=== PATIENT | male | born 1955 | race Caucasian/White ===

== ENCOUNTER 2022-05-25 09:20 | Inpatient (IN) ==
[2022-05-25 10:02] LABS: Hematocrit 20 % (42-52); Hemoglobin 6.3 g/dL (14.0-18.0); Mean Corpuscular HGB Conc 31 g/dL (31-36); Mean Corpuscular Hemoglobin 21 pg (27-31); Mean Corpuscular Volume 68 fL (80-94); Mean Platelet Volume 8.5 fL (7.4-10.4); Platelet Count 155 10^3/uL (150-450); Red Blood Count 2.95 10^6 /uL (4.18-5.48); Red Cell Distribution Width 21 % (10-15)
[2022-05-25 10:05] LABS: INR 1.55 (0.88-1.18)
[2022-05-25 10:19] LABS: High Sens Troponin Baseline 8 pg/mL (<20)
[2022-05-25 10:42] LABS: ALT 10 U/L (7-52); AST 10 U/L (13-39); Albumin 2.8 g/dL (3.2-5.2); Albumin/Globulin Ratio 1.2 (1-3); Alkaline Phosphatase 80 U/L (35-149); Anion Gap 15 mmol/L (2-11); Blood Urea Nitrogen 27 mg/dL (6-24); CO2 Carbon Dioxide 21 mmol/L (22-32); Calcium 7.8 mg/dL (8.6-10.3); Chloride 101 mmol/L (101-111); Creatinine, Serum 1.81 mg/dL (0.67-1.17); Globulin 2.4 g/dL (2-4); Glucose 175 mg/dL (70-100); Magnesium 1.7 mg/dL (1.9-2.7); Potassium 3.7 mmol/L (3.5-5.0); Sodium 137 mmol/L (135-145); Total Protein 5.2 g/dL (6.4-8.9); eGFR CKD-EPI 40.2 (>60)
[2022-05-25] MEDS ORDERED: Magnesium Sulfate IV 3 GM in NS 0.9% 100 ml BAG 100 ML IVPB ONE (11:00)
[2022-05-25 11:25] LABS: High Sensitivity Troponin 1 Hr 8 pg/mL (<20)
[2022-05-25 11:35] LABS: Microcytosis 3+; Toxic Granulation 1+
[2022-05-25 11:36] LABS: Anisocytosis 2+
[2022-05-25 11:38] LABS: ABS Lymphocytes 0.2 10^3/ul (1.0-4.8); ABS Monocytes 0.1 10^3/ul (0-0.8); ABS Neutrophils 0.6 10^3/ul (1.5-7.7); Eosinophil % 1.9 %; Lymphocyte % 17.5 %; Nucleated Red Blood Cells % 0.1
[2022-05-25] MEDS ORDERED: KCL 20 MEQ/100 ML IVPREMIX 20 MEQ/100 ML BAG IV ONE (13:00)
[2022-05-25] MEDS ORDERED: Magnesium Sulfate 2 gm BAG 2 GM/50 ML BAG IVPB ONE (13:00)
[2022-05-25] MEDS: Enoxaparin 40 MG/0.4 ML SYR SUBCUT SCH (15:21)
[2022-05-25] MEDS: Ondansetron 4 mg VIAL 2 MG/ML 2 ml VIAL IV PRN ×2 (15:23→20:41)
[2022-05-25 22:36] LABS: Total Iron Binding Capacity 234 mcg/dL (250-450); Transferrin 167 mg/dL (203-362)
[2022-05-25 22:39] LABS: % Iron Saturation 9 % (15-55); Iron < 20 ug/dL (50-212); Unsaturated Iron Binding 214 ug/dL
[2022-05-25 22:56] LABS: Ferritin 366.1 ng/mL (24-336)
[2022-05-26] MEDS ORDERED: Calcium Carb (TUMS) 500 mg CHEW TAB PO ONE ×2 (00:07→23:48)
[2022-05-26 00:41] LABS: Hematocrit 24 % (42-52); Hemoglobin 8.1 g/dL (14.0-18.0)
[2022-05-26 06:54] LABS: Hematocrit 25 % (42-52); Hemoglobin 8.2 g/dL (14.0-18.0); Mean Corpuscular HGB Conc 33 g/dL (31-36); Mean Corpuscular Hemoglobin 23 pg (27-31); Mean Corpuscular Volume 70 fL (80-94); Mean Platelet Volume 8.5 fL (7.4-10.4); Platelet Count 244 10^3/uL (150-450); Red Blood Count 3.53 10^6 /uL (4.18-5.48); Red Cell Distribution Width 22 % (10-15); White Blood Count 3.5 10^3/uL (3.5-10.8)
[2022-05-26 07:36] LABS: Calcium 7.7 mg/dL (8.6-10.3); Magnesium 2.6 mg/dL (1.9-2.7); Potassium 3.2 mmol/L (3.5-5.0)
[2022-05-26 07:41] LABS: Creatinine, Serum 1.73 mg/dL (0.67-1.17); Phosphorus 3.1 mg/dL (2.5-5.0); eGFR CKD-EPI 42.5 (>60)
[2022-05-26 08:40] LABS: ABS Eosinophils 0.1 10^3/ul (0-0.6); ABS Lymphocytes 0.6 10^3/ul (1.0-4.8); ABS Monocytes 0.3 10^3/ul (0-0.8); ABS Neutrophils 2.5 10^3/ul (1.5-7.7); Eosinophil % 3.4 %; Lymphocyte % 18.5 %
[2022-05-26 08:48] LABS: Macrocytosis 3+
[2022-05-26 08:49] LABS: Anisocytosis 2+
[2022-05-26] MEDS ORDERED: Lactated Ringers 1000 ml BAG 1,000 ML IV ONE (09:08)
[2022-05-26] MEDS ORDERED: NS 0.9% 1000 ml BAG 1,000 ML IV ONE (09:53)
[2022-05-26] MEDS: Potassium Chlor 20 meq TAB.ER PO ONE ×2 (09:58→13:01)
[2022-05-26] MEDS ORDERED: Potassium Chlor 20 meq TAB.ER PO ONE (10:00)
[2022-05-26] MEDS ORDERED: NS 0.9% 1000 ml BAG 1,000 ML IV SCH (10:00)
[2022-05-26] MEDS: Cholestyramine Resin 4 GM POWDER PO SCH ×2 (10:50→22:52)
[2022-05-26] MEDS ORDERED: Metoprolol Tartrate 5 mg VIAL 5 ml VIAL (1 mg/ml) IV PRN (11:55)
[2022-05-26] MEDS ORDERED: Potassium Chloride LIQUID 20 MEQ/15 ML LIQUID PO ONE (12:39)
[2022-05-26] MEDS ORDERED: KCL 20 MEQ/100 ML IVPREMIX 20 MEQ/100 ML BAG IV SCH (13:00)
[2022-05-26] MEDS ORDERED: Metoprolol Tartrate 5 mg VIAL 5 ml VIAL (1 mg/ml) IV ONE (13:17)
[2022-05-26 15:07] LABS: High Sensitivity Troponin 1 Hr 10 pg/mL (<20)
[2022-05-26] MEDS: Enoxaparin 40 MG/0.4 ML SYR SUBCUT SCH (15:12)
[2022-05-26] MEDS ORDERED: Digoxin IV 0.5 MG/2 ML AMP (0.25 MG/ML) IV SLOW PU ONE (15:47)
[2022-05-26 17:00] LABS: TSH Ultra Thyroid Stim Horm 1.35 mcIU/mL (0.34-5.60)
[2022-05-26] MEDS ORDERED: Acetaminophen IV 1 GM/100ML 1,000 MG/100 ML BAG IV ONE (17:22)
[2022-05-26] MEDS ORDERED: Al Hydrox/Mg Hydrox/Simet LIQ 30 ML UDC PO PRN (17:32)
[2022-05-26 18:46] LABS: Calcium 7.9 mg/dL (8.6-10.3); Creatinine, Serum 1.31 mg/dL (0.67-1.17); Magnesium 2.3 mg/dL (1.9-2.7); Potassium 3.9 mmol/L (3.5-5.0); eGFR CKD-EPI 59.3 (>60)
[2022-05-26] MEDS: Ondansetron 4 mg VIAL 2 MG/ML 2 ml VIAL IV PRN (20:58)
[2022-05-26] MEDS: Lactated Ringers 1000 ml BAG 1,000 ML IV SCH (20:59)
[2022-05-26] MEDS: Scopolamine 1 mg/72hr PATCH TRANSDERM SCH (23:03)
[2022-05-27] MEDS ORDERED: Digoxin IV 0.5 MG/2 ML AMP (0.25 MG/ML) ONE (03:12)
[2022-05-27] MEDS ORDERED: Digoxin IV 0.5 MG/2 ML AMP (0.25 MG/ML) IV SLOW PU ONE (04:00)
[2022-05-27 06:32] LABS: INR 1.33 (0.88-1.18)
[2022-05-27 06:36] LABS: Hematocrit 31 % (42-52); Hemoglobin 10.1 g/dL (14.0-18.0); Mean Corpuscular HGB Conc 33 g/dL (31-36); Mean Corpuscular Hemoglobin 23 pg (27-31); Mean Corpuscular Volume 71 fL (80-94); Mean Platelet Volume 8.5 fL (7.4-10.4); Platelet Count 288 10^3/uL (150-450); Red Blood Count 4.35 10^6 /uL (4.18-5.48); Red Cell Distribution Width 22 % (10-15); White Blood Count 3.4 10^3/uL (3.5-10.8)
[2022-05-27] MEDS: Lactated Ringers 1000 ml BAG 1,000 ML IV SCH ×2 (06:41→18:31)
[2022-05-27 06:42] LABS: Albumin 2.5 g/dL (3.2-5.2); Calcium 7.8 mg/dL (8.6-10.3); Creatinine, Serum 1.53 mg/dL (0.67-1.17); Globulin 2.4 g/dL (2-4); Magnesium 2.3 mg/dL (1.9-2.7); Phosphorus 4.4 mg/dL (2.5-5.0); Potassium 4.2 mmol/L (3.5-5.0); Total Bilirubin 1.1 mg/dL (0.2-1.0); Total Protein 4.9 g/dL (6.4-8.9); eGFR CKD-EPI 49.2 (>60)
[2022-05-27 07:34] LABS: Anisocytosis 1+
[2022-05-27 07:35] LABS: ABS Lymphocytes 0.8 10^3/ul (1.0-4.8); ABS Neutrophils 2.2 10^3/ul (1.5-7.7); Microcytosis 1+
[2022-05-27] MEDS: Ondansetron 4 mg VIAL 2 MG/ML 2 ml VIAL IV PRN ×2 (08:16→11:06)
[2022-05-27] MEDS: Cholestyramine Resin 4 GM POWDER PO SCH (10:52)
[2022-05-27] MEDS ORDERED: Famotidine IV 10 MG/ML 2 ml VIAL (20 mg) IV SLOW PU SCH (12:00)
[2022-05-27] MEDS: Enoxaparin 40 MG/0.4 ML SYR SUBCUT SCH (13:25)
[2022-05-27] MEDS ORDERED: Piperacillin/Tazobac ADVAN 3.375 GM in NS 0.9% 100 ml BAG 100 ML IV ONE (13:51)
[2022-05-27] MEDS ORDERED: Zosyn per Pharmacy NOTE FOLLOW UP SCH (14:00)
[2022-05-27] MEDS ORDERED: Midazolam 5 mg/5 ml VIAL 1 mg/ml 5 ml VIAL (5 mg) ONE (14:51)
[2022-05-27] MEDS ORDERED: fentaNYL 100 mcg/2 ml 50 MCG/ML VIAL ONE (14:51)
[2022-05-27] MEDS: Pantoprazole VIAL 40 MG VIAL IV SCH (21:10)
[2022-05-27] MEDS: ZOSYN 3.375 GM Q8H per EXTENDED INFUSION IV SCH (21:58)
[2022-05-28] MEDS: Lactated Ringers 1000 ml BAG 1,000 ML IV SCH ×2 (04:47→16:14)
[2022-05-28] MEDS: ZOSYN 3.375 GM Q8H per EXTENDED INFUSION IV SCH ×3 (05:37→21:54)
[2022-05-28 06:42] LABS: Hematocrit 27 % (42-52); Hemoglobin 8.8 g/dL (14.0-18.0); Mean Corpuscular HGB Conc 33 g/dL (31-36); Mean Corpuscular Hemoglobin 24 pg (27-31); Mean Corpuscular Volume 71 fL (80-94); Mean Platelet Volume 8.1 fL (7.4-10.4); Platelet Count 236 10^3/uL (150-450); Red Blood Count 3.75 10^6 /uL (4.18-5.48); Red Cell Distribution Width 22 % (10-15); White Blood Count 4.5 10^3/uL (3.5-10.8)
[2022-05-28 06:58] LABS: Calcium 7.4 mg/dL (8.6-10.3); Creatinine, Serum 1.19 mg/dL (0.67-1.17); Potassium 3.4 mmol/L (3.5-5.0); eGFR CKD-EPI 66.5 (>60)
[2022-05-28 08:38] LABS: ABS Eosinophils 0.1 10^3/ul (0-0.6); ABS Lymphocytes 0.8 10^3/ul (1.0-4.8); ABS Monocytes 0.4 10^3/ul (0-0.8); ABS Neutrophils 3.2 10^3/ul (1.5-7.7); Eosinophil % 2.5 %; Lymphocyte % 17.6 %; Nucleated Red Blood Cells % 0.1
[2022-05-28] MEDS ORDERED: Pantoprazole VIAL 40 MG VIAL IV SCH (09:00)
[2022-05-28] MEDS: Pantoprazole VIAL 40 MG VIAL IV SCH ×2 (09:22→20:46)
[2022-05-28] MEDS ORDERED: Potassium Chlor 20 meq TAB.ER PO ONE (09:36)
[2022-05-28] MEDS: Enoxaparin 40 MG/0.4 ML SYR SUBCUT SCH (10:39)
[2022-05-28] MEDS: KCL 20 MEQ/100 ML IVPREMIX 20 MEQ/100 ML BAG IV SCH ×2 (10:39→13:20)
[2022-05-29] MEDS: Lactated Ringers 1000 ml BAG 1,000 ML IV SCH (03:03)
[2022-05-29] MEDS: ZOSYN 3.375 GM Q8H per EXTENDED INFUSION IV SCH ×2 (06:01→14:00)
[2022-05-29 07:17] LABS: Hematocrit 25 % (42-52); Hemoglobin 8.2 g/dL (14.0-18.0); Mean Corpuscular HGB Conc 33 g/dL (31-36); Mean Corpuscular Hemoglobin 23 pg (27-31); Mean Corpuscular Volume 71 fL (80-94); Mean Platelet Volume 7.4 fL (7.4-10.4); Platelet Count 218 10^3/uL (150-450); Red Blood Count 3.52 10^6 /uL (4.18-5.48); Red Cell Distribution Width 22 % (10-15); White Blood Count 5.4 10^3/uL (3.5-10.8)
[2022-05-29 07:57] LABS: Calcium 7.4 mg/dL (8.6-10.3); Creatinine, Serum 0.92 mg/dL (0.67-1.17); Magnesium 1.9 mg/dL (1.9-2.7); Potassium 3.5 mmol/L (3.5-5.0); eGFR CKD-EPI 90.6 (>60)
[2022-05-29] MEDS ORDERED: Potassium Chlor 20 meq TAB.ER PO ONE (09:52)
[2022-05-29] MEDS ORDERED: Magnesium Sulfate 2 gm BAG 2 GM/50 ML BAG IVPB ONE (09:52)
[2022-05-29] MEDS: Pantoprazole VIAL 40 MG VIAL IV SCH ×2 (11:28→20:43)
[2022-05-29] MEDS: Enoxaparin 40 MG/0.4 ML SYR SUBCUT SCH (11:29)
[2022-05-29] MEDS ORDERED: Prochlorperazine 5 mg/ml 2 ml VIAL (10 mg) IV PRN (11:33)
[2022-05-29 19:33] LABS: CMV DNA DETECT/QT, P Undetected IU/mL (Undetected)
[2022-05-29] MEDS ORDERED: Senna TAB 8.6 mg TAB PO SCH (21:00)
[2022-05-29] MEDS: Scopolamine 1 mg/72hr PATCH TRANSDERM SCH (23:10)
[2022-05-30 06:46] LABS: Calcium 7.4 mg/dL (8.6-10.3); Creatinine, Serum 0.86 mg/dL (0.67-1.17); Magnesium 2.1 mg/dL (1.9-2.7); Potassium 3.8 mmol/L (3.5-5.0); eGFR CKD-EPI 94.3 (>60)
[2022-05-30] MEDS ORDERED: Digoxin IV 0.5 MG/2 ML AMP (0.25 MG/ML) IV SLOW PU ONE (08:00)
[2022-05-30 08:20] LABS: Carcinoembryonic Antigen 221.3 ng/mL (0.1-5.0)
[2022-05-30] MEDS: Iron Sucrose 200 MG in NS 0.9% 100 ml IVPB SCH (08:54)
[2022-05-30] MEDS: Pantoprazole VIAL 40 MG VIAL IV SCH ×2 (08:55→20:34)
[2022-05-30] MEDS ORDERED: Iron Sucrose 20 MG/ML 5 ML VIAL IV PUSH SCH (09:00)
[2022-05-30] MEDS: Enoxaparin 40 MG/0.4 ML SYR SUBCUT SCH (09:03)
[2022-05-30] MEDS: Sucralfate 1 gm SUSP 1 GM/10 ML UDC PO SCH ×3 (11:31→20:34)
[2022-05-30 16:52] LABS: Calprotectin 101 mcg/g
[2022-05-31 07:12] LABS: Calcium 7.4 mg/dL (8.6-10.3); Creatinine, Serum 0.66 mg/dL (0.67-1.17); Potassium 3.3 mmol/L (3.5-5.0); eGFR CKD-EPI 102.2 (>60)
[2022-05-31] MEDS: Iron Sucrose 200 MG in NS 0.9% 100 ml IVPB SCH (08:18)
[2022-05-31] MEDS: Pantoprazole VIAL 40 MG VIAL IV SCH ×2 (08:18→20:10)
[2022-05-31] MEDS: Enoxaparin 40 MG/0.4 ML SYR SUBCUT SCH (08:19)
[2022-05-31] MEDS: Sucralfate 1 gm SUSP 1 GM/10 ML UDC PO SCH ×4 (09:11→20:09)
[2022-05-31] MEDS ORDERED: Potassium Chlor 20 meq TAB.ER PO ONE ×2 (09:24→12:00)
[2022-06-01] MEDS: Sucralfate 1 gm SUSP 1 GM/10 ML UDC PO SCH ×4 (07:44→19:54)
[2022-06-01] MEDS: Pantoprazole VIAL 40 MG VIAL IV SCH ×2 (08:02→19:55)
[2022-06-01] MEDS: Enoxaparin 40 MG/0.4 ML SYR SUBCUT SCH (08:02)
[2022-06-01] MEDS: Iron Sucrose 200 MG in NS 0.9% 100 ml IVPB SCH (08:03)
[2022-06-01 09:03] LABS: Hematocrit 28 % (42-52); Hemoglobin 8.8 g/dL (14.0-18.0); Mean Corpuscular HGB Conc 32 g/dL (31-36); Mean Corpuscular Hemoglobin 23 pg (27-31); Mean Corpuscular Volume 72 fL (80-94); Mean Platelet Volume 8.2 fL (7.4-10.4); Platelet Count 325 10^3/uL (150-450); Red Blood Count 3.82 10^6 /uL (4.18-5.48); Red Cell Distribution Width 22 % (10-15); White Blood Count 9.5 10^3/uL (3.5-10.8)
[2022-06-01 09:26] LABS: Calcium 7.2 mg/dL (8.6-10.3); Creatinine, Serum 0.6 mg/dL (0.67-1.17); Magnesium 1.7 mg/dL (1.9-2.7); Potassium 3.6 mmol/L (3.5-5.0); eGFR CKD-EPI 105.1 (>60)
[2022-06-01] MEDS ORDERED: Magnesium Sulfate 2 gm BAG 2 GM/50 ML BAG IVPB ONE (10:00)
[2022-06-01 11:00] LABS: Direct Bilirubin 0.1 mg/dL (0.03-0.18); Indirect Bilirubin 0.4 mg/dL (0.3-1.0); Total Bilirubin 0.5 mg/dL (0.2-1.0)
[2022-06-01] MEDS: Scopolamine 1 mg/72hr PATCH TRANSDERM SCH (23:28)
[2022-06-02 07:40] LABS: Hematocrit 29 % (42-52); Hemoglobin 9.5 g/dL (14.0-18.0); Mean Corpuscular HGB Conc 32 g/dL (31-36); Mean Corpuscular Hemoglobin 24 pg (27-31); Mean Corpuscular Volume 74 fL (80-94); Mean Platelet Volume 8.2 fL (7.4-10.4); Platelet Count 387 10^3/uL (150-450); Red Blood Count 3.96 10^6 /uL (4.18-5.48); Red Cell Distribution Width 23 % (10-15); White Blood Count 8.9 10^3/uL (3.5-10.8)
[2022-06-02 08:11] LABS: Calcium 7.4 mg/dL (8.6-10.3); Creatinine, Serum 0.66 mg/dL (0.67-1.17); Magnesium 1.8 mg/dL (1.9-2.7); Potassium 3.4 mmol/L (3.5-5.0); eGFR CKD-EPI 102.2 (>60)
[2022-06-02 09:26] LABS: Microcytosis 2+
[2022-06-02 09:27] LABS: ABS Eosinophils 0.1 10^3/ul (0-0.6); ABS Lymphocytes 1.1 10^3/ul (1.0-4.8); ABS Monocytes 0.6 10^3/ul (0-0.8); ABS Neutrophils 7.1 10^3/ul (1.5-7.7); Eosinophil % 0.9 %; Lymphocyte % 12.9 %
[2022-06-02] MEDS: Pantoprazole VIAL 40 MG VIAL IV SCH ×2 (10:13→20:31)
[2022-06-02] MEDS: Iron Sucrose 200 MG in NS 0.9% 100 ml IVPB SCH (10:14)
[2022-06-02] MEDS: Sucralfate 1 gm SUSP 1 GM/10 ML UDC PO SCH ×4 (10:14→20:30)
[2022-06-02] MEDS: Enoxaparin 40 MG/0.4 ML SYR SUBCUT SCH (10:14)
[2022-06-02 17:05] LABS: Pancreatic Elastase Feces 104 mcg/g
[2022-06-03 06:38] LABS: Calcium 7.3 mg/dL (8.6-10.3); Creatinine, Serum 0.56 mg/dL (0.67-1.17); Magnesium 1.6 mg/dL (1.9-2.7); Potassium 3.2 mmol/L (3.5-5.0); eGFR CKD-EPI 107.4 (>60)
[2022-06-03] MEDS ORDERED: KCL 20 MEQ/100 ML IVPREMIX 20 MEQ/100 ML BAG IV ONE (07:00)
[2022-06-03] MEDS ORDERED: Magnesium Sulf 4 GM/100 ML IV 4,000 MG/100 ML BAG IVPB ONE (07:11)
[2022-06-03] MEDS ORDERED: Potassium Chloride LIQUID 20 MEQ/15 ML LIQUID PO ONE (07:41)
[2022-06-03] MEDS: Enoxaparin 40 MG/0.4 ML SYR SUBCUT SCH (07:50)
[2022-06-03] MEDS: Sucralfate 1 gm SUSP 1 GM/10 ML UDC PO SCH ×4 (08:07→21:58)
[2022-06-03 09:33] LABS: Percent Fat 7 % fat (< 20)
[2022-06-03 09:37] LABS: Percent Fat 19 % fat (< 20)
[2022-06-03 10:32] LABS: Phosphorus 1.9 mg/dL (2.5-5.0)
[2022-06-03] MEDS: Iron Sucrose 200 MG in NS 0.9% 100 ml IVPB SCH (10:58)
[2022-06-03] MEDS ORDERED: Sodium Phosphate IV 30 MMOL in NS 0.9% 250 ml 250 ML IV ONE (11:05)
[2022-06-03 18:34] LABS: Calcium 6.9 mg/dL (8.6-10.3); Creatinine, Serum 0.53 mg/dL (0.67-1.17); Magnesium 1.9 mg/dL (1.9-2.7); Phosphorus 2.9 mg/dL (2.5-5.0); Potassium 3.2 mmol/L (3.5-5.0); eGFR CKD-EPI 109.2 (>60)
[2022-06-03] MEDS ORDERED: Magnesium Sulfate 2 gm BAG 2 GM/50 ML BAG IVPB ONE (20:09)
[2022-06-03] MEDS: KCL 20 MEQ/100 ML IVPREMIX 20 MEQ/100 ML BAG IV SCH (22:15)
[2022-06-04] MEDS: KCL 20 MEQ/100 ML IVPREMIX 20 MEQ/100 ML BAG IV SCH (00:29)
[2022-06-04 06:16] LABS: Calcium 6.8 mg/dL (8.6-10.3); Creatinine, Serum 0.5 mg/dL (0.67-1.17); Magnesium 1.9 mg/dL (1.9-2.7); Phosphorus 1.7 mg/dL (2.5-5.0); Potassium 3.3 mmol/L (3.5-5.0); eGFR CKD-EPI 111.1 (>60)
[2022-06-04] MEDS ORDERED: Magnesium Sulfate IV 1GM/100ML 1 GM/100 ML BAG IV ONE (06:51)
[2022-06-04] MEDS ORDERED: Potassium Phosphate IV 30 MMOL in NS 0.9% 250 ml 250 ML IVPB ONE (07:30)
[2022-06-04] MEDS: Sucralfate 1 gm SUSP 1 GM/10 ML UDC PO SCH ×2 (10:17→11:53)
[2022-06-04] MEDS: Enoxaparin 40 MG/0.4 ML SYR SUBCUT SCH (10:24)
[2022-06-04 12:36] VITALS: BP 137/81
[2022-06-04 13:16] LABS: Albumin 2.5 g/dL (3.2-5.2); Albumin/Globulin Ratio 1.3 (1-3); Calcium 6.9 mg/dL (8.6-10.3); Creatinine, Serum 0.53 mg/dL (0.67-1.17); Globulin 1.9 g/dL (2-4); Phosphorus 1.8 mg/dL (2.5-5.0); Potassium 3.4 mmol/L (3.5-5.0); Total Bilirubin 0.5 mg/dL (0.2-1.0); Total Protein 4.4 g/dL (6.4-8.9); eGFR CKD-EPI 109.2 (>60)
[2022-06-04] MEDS ORDERED: Potassium & Sodium Phos 250 mg = 1 PACKET PO ONE (15:06)
== END 2022-06-04 16:32 | disposition home health service (06) | DRG 374 ==
LOC: EDHOLD 09:20 → ED 09:20 → EDHOLD 19:31 → MEDTELE 20:23 → SUATTDRO 05-26 13:00
PROVIDERS: ADMIT Internal Medicine; ATTEND Internal Medicine

== ENCOUNTER 2023-11-07 12:58 | Inpatient (IN) ==
[2023-11-07] MEDS: LACTATED RINGERS SEPSIS IV ONE (14:07)
[2023-11-07 14:31] LABS: ABS Neutrophils 0.2 10^3/uL (1.5-7.6); Hematocrit 29.6 % (38-53); Mean Corpuscular Hemoglobin 27.2 pg (27-33); Mean Corpuscular Hgb Conc 33.9 g/dL (31-36); Mean Corpuscular Volume 80.3 fL (80-97); Mean Platelet Volume 7.9 fL (7.5-11.2); Platelet Count 127 10^3/uL (150-450); Red Blood Count 3.68 10^6/uL (4.06-5.63); Red Cell Distribution Width 14.5 % (12-17); White Blood Count 0.6 10^3/uL (3.6-10.2)
[2023-11-07 14:38] LABS: Activated Partial Thrombo Time 30.1 seconds (26.0-38.0); INR 1.3 (0.83-1.13)
[2023-11-07 14:52] LABS: Albumin 3.4 g/dL (3.2-5.2); Albumin/Globulin Ratio 1.1 (1-3); C Reactive Protein 284.17 mg/L (<8.01); Calcium 8.4 mg/dL (8.6-10.3); Creatinine, Serum 2.78 mg/dL (0.67-1.17); Potassium 4.7 mmol/L (3.5-5.0); Total Bilirubin 1.4 mg/dL (0.2-1.0); Total Protein 6.4 g/dL (6.4-8.9); eGFR CKD-EPI 23.7 (>60)
[2023-11-07 14:53] LABS: ABS Lymphocytes 0.4 10^3/uL (1.0-4.8); Eosinophil % 1.9 %; Lymphocyte % 64.3 %
[2023-11-07] MEDS: Morphine 4 MG/ML VIAL (1 ml) IV ONE (16:05)
[2023-11-07] MEDS: Lactated Ringers 1000 ml BAG 1,000 ML IV SCH (17:10)
[2023-11-07 18:20] LABS: Calcium 7.8 mg/dL (8.6-10.3); Creatinine, Serum 2.3 mg/dL (0.67-1.17); Potassium 4.6 mmol/L (3.5-5.0); eGFR CKD-EPI 29.8 (>60)
[2023-11-07 18:36] VITALS: BP 99/65
[2023-11-07] MEDS: Morphine 2 MG/ML SYRINGE IV PRN (20:20)
[2023-11-07] MEDS: Polyethylene Glycol 3350 17 GM PACKET PO SCH (20:40)
[2023-11-08] MEDS: cefTRIAXone 1 gm/50 mL D5W 1 GM/50 ML BAG IV SCH (03:47)
[2023-11-08] MEDS: Benzocaine/Menthol LOZ MT PRN ×2 (04:05→15:03)
[2023-11-08] MEDS: Lactated Ringers 1000 ml BAG 1,000 ML IV ONE (10:01)
[2023-11-08] MEDS ORDERED: Loperamide LIQ 2 MG/15 ML UDC PO PRN (12:11)
[2023-11-08] MEDS ORDERED: Morphine ORAL CONCENTRATE 5 MG/0.25 ML ORAL.SYRIN SL PRN ×2 (13:48→14:56)
[2023-11-08] MEDS: Scopolamine 1 mg/72hr PATCH TRANSDERM SCH (14:47)
[2023-11-08] MEDS: Morphine ORAL CONCENTRATE 5 MG/0.25 ML ORAL.SYRIN SL SCH (15:01)
[2023-11-08] MEDS ORDERED: Benzocaine/Menthol LOZ MT PRN (17:34)
[2023-11-09] MEDS: Lactated Ringers 1000 ml BAG 1,000 ML IV ONE (15:25)
[2023-11-10] MEDS: Morphine ORAL CONCENTRATE 5 MG/0.25 ML ORAL.SYRIN SL PRN (11:47)
== END 2023-11-10 12:55 | disposition hospice, home (50) | DRG 435 ==
LOC: ED 12:58 → EDHOLD 12:58 → SUATTDRO 15:37 → EDHOLD 17:52 → MEDTELE 18:11
PROVIDERS: ADMIT Student in an Organized Health Care Education/Training Program; ATTEND Internal Medicine